=== PATIENT | female | born 1990 | race Caucasian/White ===

== ENCOUNTER 2017-02-20 12:10 | Outpatient (CLI) | payer OTHER ==
--- NOTE | 2017-02-20 13:24 | DIAGNOSTIC IMAGING REPORT ---
PROCEDURE: US LTD BREAST ULTRASOUND - LT INDICATION: Palpable area left breast. TECHNIQUE: High resolution hyde scale and color Doppler sonographic images of the left breast. COMPARISON: None. FINDINGS: There is a 9 mm x 4 mm and normal lymph node in the lateral left breast (0230 position,) which corresponds to the palpable area. No evidence of underlying abnormality. IMPRESSION: 1. Negative left breast ultrasound with normal intramammary lymph node in the lateral left breast. No evidence of underlying abnormality. 2. Findings discussed with the patient. RESULT CODE: 2- Benign finding(s). A. A negative report should not delay biopsy if a dominant or clinically suspicious mass is present. 10-15% of cancers are not identified by x-ray. B. A negative report may reinforce clinical impression. C. Adenosis and dense breasts may obscure an underlying neoplasm. D. False positive reports average 6-10%. E.. A yearly screening mammogram is recommended. A reminder letter will be scheduled.
== END 2017-02-20 23:00 ==
LOC: US SRH 12:10
DX: N63 Unspecified lump in breast (principal)